=== PATIENT | female | born 1990 ===

== ENCOUNTER 2023-01-18 15:44 | Emergency (ER) | payer MEDICAID, OTHER, SELFPAY ==
[2023-01-18] MEDS ORDERED: Ketorolac Tromethamine 30 MG/ML VIAL ONE (17:22)
== END 2023-01-18 18:20 | disposition home or self-care (01) ==
LOC: ERS 15:44
DX: M25.511 Pain in right shoulder (principal); E11.9 Type 2 diabetes mellitus without complications; E78.5 Hyperlipidemia, unspecified; I10 Essential (primary) hypertension; F17.210 Nicotine dependence, cigarettes, uncomplicated; Z79.899 Other long term (current) drug therapy; Z79.4 Long term (current) use of insulin
CPT/HCPCS: 96372; J1885

== ENCOUNTER 2023-06-06 10:53 | Inpatient (IN) | payer OTHER ==
[2023-06-06] MEDS ORDERED: Acetaminophen 500 MG TAB ONE (11:29)
[2023-06-06] MEDS ORDERED: Piperacillin/Tazobactam 4.5 GM VIAL ONE (11:30)
[2023-06-06] MEDS ORDERED: Ketorolac Tromethamine 30 MG (1 mL) VIAL ONE (11:30)
[2023-06-06] MEDS ORDERED: Sodium Chloride 0.9% 100 ML ONE (11:30)
[2023-06-06 12:18] LABS: #Basophils 0.04 10x3/uL (0.0-0.2); %Basophils 0.5 % (0.0-1.0); %Eosinophils 7.5 % (0.0-10.0); %Lymphocytes 21.6 % (21.0-51.0); %Monocytes 6.8 % (0.0-10.0); %Neutrophils 63.5 % (42.0-75.0); Hematocrit 34.9 % (36.0-47.0); Hemoglobin 11.3 g/dL (12.0-16.0); Mean Corpuscular HGB CONC 32.4 g/dL (32.0-36.0); Mean Corpuscular Hemoglobin 28.2 pg (27.0-31.0); Mean Platelet Volume 9.7 fL (7.4-10.4); Platelet Count 340 10x3/uL (130-400); RBC Distribution Width 13.2 % (11.5-14.5); Red Blood Cell (RBC) Count 4.01 mill/uL (4.20-5.40)
[2023-06-06 12:29] LABS: Bacteria/HPF None Seen HPF (None Seen); Bilirubin Negative (Negative); Blood, Urine Negative (Negative); CAUTI Indications for Culture Fever or rigors; Clarity Clear (Clear); Glucose, Urine (Dipstick) Normal (Negative); Ketone, Urine Negative (Negative); Leukocyte Negative Leu/uL (Negative); Nitrite Negative (Negative); Protein, Urine (Dipstick) Negative (Neg-Trace); RBC/HPF 0-3 HPF (0-3); Specific Gravity, Urine 1.014 (1.002-1.036); Squamous Epithelial 0-3 HPF (0-3); Urobilinogen Normal mg/dL (Less than 2); WBC/HPF 0-3 HPF (0-3); pH, Urine 6.5 (5.0-9.0)
[2023-06-06 12:31] LABS: Urine Culture Reflex No No
[2023-06-06 12:33] LABS: ALT (SGPT) 26 U/L (8-55); AST (SGOT) 19 U/L (5-34); Albumin 4.1 g/dL (3.5-5.0); Alkaline Phosphatase 79 U/L (40-110); Anion Gap 12 mmol/L (10-20); BUN (Urea Nitrogen) 11 mg/dL (7.0-18.7); Bilirubin, Total 0.2 mg/dL (0.2-1.2); Calc. Creatinine Clearance 0 mL/min (70-130); Carbon Dioxide 25 mmol/L (22-29); Chloride 104 mmol/L (98-107); Estimated GFR 105; Globulin 3.5 g/dL (2.4-3.5); Glucose 98 mg/dL (70-105); Potassium 4.2 mmol/L (3.5-5.1); Protein, Total 7.6 g/dL (6.0-8.3); Sodium 137 mmol/L (136-145)
[2023-06-06] MEDS ORDERED: Acetaminophen 325 MG TAB PO PRN (14:07)
[2023-06-06] MEDS ORDERED: Calcium Carbonate 500 MG ChewTAB PO PRN (14:07)
[2023-06-06] MEDS ORDERED: HumaLOG 300 UNITS/3 ML VIAL SC PRN (14:09)
[2023-06-06] MEDS ORDERED: Dextrose 50% Abboject 50 ML SYRINGE SLOW IVP PRN (14:09)
[2023-06-06] MEDS ORDERED: Dextrose 5% in Water 1,000 ML IV PRN (14:09)
[2023-06-06] MEDS ORDERED: Glucagon 1 MG/ML KIT IM PRN (14:09)
[2023-06-06] MEDS ORDERED: Iopamidol-370 76% 500 ML MDV (1 ML CHARGE) ONE (14:31)
[2023-06-06 15:43] VITALS: BMI 32.2
[2023-06-06] MEDS: Vancomycin (BATCH) 1.5 GM in Premix 1 BAG IVPB SCH (15:47)
[2023-06-06] MEDS: Sodium Chloride 0.9% 1,000 ML IV SCH (16:05)
[2023-06-06] MEDS: HYDROcodone/Acetaminophen 5/325 mg Tablet PO PRN (17:47)
[2023-06-06] MEDS: Insulin Glargine 30 UNITS/0.3 ML VIAL SC SCH (21:17)
[2023-06-06] MEDS: Cefepime 2 GM in Sodium Chloride 0.9% 100 ML IVPB SCH (21:17)
[2023-06-06] MEDS: Famotidine 20 MG TAB PO SCH (21:17)
[2023-06-06] MEDS: Vancomycin 1 GM in Premix 1 BAG IVPB SCH (23:26)
[2023-06-07 04:44] LABS: #Basophils 0.04 10x3/uL (0.0-0.2); %Basophils 0.7 % (0.0-1.0); %Eosinophils 8.6 % (0.0-10.0); %Lymphocytes 30.6 % (21.0-51.0); %Monocytes 7.1 % (0.0-10.0); %Neutrophils 52.8 % (42.0-75.0); Hematocrit 32.9 % (36.0-47.0); Hemoglobin 10.6 g/dL (12.0-16.0); Mean Corpuscular HGB CONC 32.2 g/dL (32.0-36.0); Mean Corpuscular Hemoglobin 28.6 pg (27.0-31.0); Mean Corpuscular Volume 88.9 fL (78.0-98.0); Mean Platelet Volume 9.7 fL (7.4-10.4); Platelet Count 300 10x3/uL (130-400); RBC Distribution Width 13.3 % (11.5-14.5)
[2023-06-07 04:52] LABS: Hemoglobin A1c 7.1 % (4.0-6.0)
[2023-06-07 05:00] LABS: Vancomycin, Random 19.7 ug/mL (See Comment)
[2023-06-07 05:23] LABS: Anion Gap 12 mmol/L (10-20); BUN (Urea Nitrogen) 10 mg/dL (7.0-18.7); Calc. Creatinine Clearance 140 mL/min (70-130); Calcium 8.1 mg/dL (7.8-10.44); Carbon Dioxide 21 mmol/L (22-29); Chloride 109 mmol/L (98-107); Estimated GFR 117; Glucose 81 mg/dL (70-105); Potassium 3.9 mmol/L (3.5-5.1); Sodium 138 mmol/L (136-145)
[2023-06-07] MEDS: Enoxaparin 40 MG (0.4 mL) SYRINGE SC SCH (08:35)
[2023-06-07 11:13] LABS: Influenza A by NAA Not Detected (NotDetected); Influenza B by NAA Not Detected (NotDetected); RSV by NAA Not Detected (NotDetected); SARS-CoV-2 NAA Rapid Test DETECTED (NotDetected)
[2023-06-07] MEDS ORDERED: Pharmacy to Dose REMDESIVIR IVPB PRN (12:34)
[2023-06-07] MEDS: REMDESIVIR 200 MG in Sodium Chloride 0.9% 250 ML 210 ML IV SCH (15:16)
[2023-06-07] MEDS: Gabapentin 300 MG CAP PO SCH (21:29)
[2023-06-07] MEDS: FLUoxetine HCl 20 MG CAP PO SCH (21:29)
[2023-06-08] MEDS: Vancomycin (BATCH) 1.25 GM in Premix 1 BAG IVPB SCH (00:02)
[2023-06-08 06:17] LABS: ALT (SGPT) 24 U/L (8-55); AST (SGOT) 25 U/L (5-34)
[2023-06-08] MEDS: Aripiprazole 10 MG TAB PO SCH (09:17)
[2023-06-08] MEDS: REMDESIVIR 100 MG in Sodium Chloride 0.9% 250 ML 230 ML IV SCH (09:21)
[2023-06-09 04:34] LABS: Vancomycin, Random 20.9 ug/mL (See Comment)
[2023-06-09 04:40] LABS: ALT (SGPT) 24 U/L (8-55); AST (SGOT) 18 U/L (5-34)
[2023-06-09 14:03] VITALS: BP 105/71; TEMP 98.1
== END 2023-06-09 14:01 | DRG 564 ==
LOC: EEVIPCON 10:53 → ERS 10:53 → T4-B 13:59
PROVIDERS: ADMIT Family Medicine; ATTEND Internal Medicine
PROC: XW033E5 Introduction of Remdesivir Anti-infective into Peripheral Vein, Percutaneous Approach, New Technology Group 5 (ICD-10-PCS; principal; 2023-06-07)
DX: T87.42 Infection of amputation stump, left upper extremity (principal); U07.1 COVID-19; F31.9 Bipolar disorder, unspecified; E10.9 Type 1 diabetes mellitus without complications; Y83.8 Other surgical procedures as the cause of abnormal reaction of the patient, or of later complication, without mention of misadventure at the time of the procedure; Z88.2 Allergy status to sulfonamides; Z79.4 Long term (current) use of insulin; Z89.212 Acquired absence of left upper limb below elbow; Z98.51 Tubal ligation status; Z88.0 Allergy status to penicillin
CPT/HCPCS: 0241U; 36415; 36416; 71045; 80048; 80053; 80202; 81001; 82565; 83036; 83605; 84450; 84460; 85025; 86140; 87040; 96365; 96366; 96367; 96375; J0248; J0692; J1650; J1815; J1885; J2543; J3370; J3370-JW; J3490; J7050; Q9967